=== PATIENT | female | born 1980 | race African-American/Black ===

== ENCOUNTER 2018-02-01 13:25 | Outpatient (CLI) | payer MEDICARE, MEDICAID ==
[2018-02-01] MEDS ORDERED: Gadobenate Dimeglumine 529 MG/1 ML (20ML VIAL) ONE (13:28)
--- NOTE | 2018-02-01 16:39 | MRI ---
MRI BRAIN WITH AND WITHOUT CONTRAST: HISTORY: Cognitive impairment. Two months of memory loss. COMPARISON: None. TECHNIQUE: MRI brain is performed with and without intravenous Gadolinium administration. Multisequential, mult iplanar imaging is performed. FINDINGS: No hemorrhage on the axial gradient echo sequence. Central arterial flow voids are maintained. Absent restricted diffusion. No parenchymal mass, mass effect, or midline shift. Brain volume does appear to be age appropriate. There are T2 and FLAIR white matter hyperintensities, some of which are nonspecific. Some of these hyperintensities have appropriate orientation with respect to the ventricles, worrisome for demyelina ting disease. There is also subtle T2 and FLAIR hyperintensity involving the medial left temporal lo be, along the hippocampus. No pathologic enhancement of the brain parenchyma. There is extensive hypertrophy of the inner table of the calvarium. Note is made of a partially empty sella. Adequate aeration of the mastoid air cells. Minimal paranasal sinus mucosal thickening. No evidence of hemorrhage on the axial gradient echo sequence. IMPRESSION: 1. White matter hyperintensities, worrisome for multiple sclerosis until proven otherwise. Consider lumbar puncture for cerebrospinal fluid acquisition and further evaluation. 2. Extensive hypertrophy of the inner table of the calvarium, nonspecific. 3. No pathologic enhancement of the brain parenchyma. 4. Abnormal FLAIR hyperintensity along the left temporal lobe and left hippocampus, nonspecific. No associated enhancement. POS: [facility]
== END 2018-02-01 13:26 | disposition home or self-care (01) ==
LOC: TBSIIMAG 13:25
PROVIDERS: ATTEND Psychiatry & Neurology Neurology
DX: G31.84 Mild cognitive impairment of uncertain or unknown etiology (principal); G35 Multiple sclerosis; M89.38 Hypertrophy of bone, other site
CPT/HCPCS: 70553; A9579

== ENCOUNTER 2018-02-24 10:11 | Outpatient (CLI) | payer MEDICARE, MEDICAID ==
--- NOTE | 2018-02-24 15:05 | PET ---
NUCLEAR MEDICINE PET SCAN BRAIN: Date: 02/24/18 HISTORY: 37-year-old female with: R41.3 memory changes, G31.84 mild cognitive impairment. TECHNIQUE: 9.9 mCi of F18-FDG injected IV. Attenuation correction CT and PET images, and PET-CT fusion images were obtained. FINDINGS: There is appropriate degree of uptake in the different regions of the brain. More specifically, the u ptake in the parietotemporal regions, and posterior cingulate gyrus-precuneus regions, are not hypome tabolic relative to other regions. Uptake in the frontal lobes is also normal. IMPRESSION: Normal PET scan of the brain. POS: [facility]
== END 2018-02-24 10:12 | disposition home or self-care (01) ==
LOC: PET 10:11
PROVIDERS: ATTEND Psychiatry & Neurology Neurology
DX: R41.3 Other amnesia (principal)
CPT/HCPCS: 78608; A9552; 36415; 80164